=== PATIENT | female | born 1965 | race Caucasian/White ===

== ENCOUNTER 2018-08-06 04:55 | Observation (INO) ==
[2018-08-06] MEDS ORDERED: DiphenhydrAMINE HCL 50 MG/ML VIAL IV STA ×2 (05:28→07:05)
[2018-08-06] MEDS ORDERED: SODIUM CHLORIDE 0.9% 1000ML 1,000 ML IV ONE (05:28)
[2018-08-06] MEDS ORDERED: methylPREDNISolone 125 MG/2 ML VIAL IV STA (05:28)
[2018-08-06] MEDS ORDERED: RACEPINEPHRINE 2.25% NEBU SOLN 0.5 ML VIAL NEB STA (05:28)
[2018-08-06] MEDS ORDERED: FAMOTIDINE 20MG/5ML IV PUSH IV STA (05:28)
[2018-08-06] MEDS ORDERED: EPINEPHrine INJ 1 MG/ML AMP ONE (05:49)
[2018-08-06] MEDS: EPINEPHRINE ADULT AUTO-INJECT 0.3 MG SYR IM STA ×2 (06:02→06:06)
[2018-08-06 06:21] LABS: Basophils # (auto) 0.01 K/uL (0-0.2); Basophils % (auto) 0.1 %; Eosinophils # (auto) 0.11 K/uL (0-0.5); Eosinophils % (auto) 1.1 %; Hematocrit (blood only) 36.5 % (37-47); Hemoglobin 12.2 g/dL (12.0-16.0); Immature Granulocytes # (auto) 0.01 K/uL (0.00-0.02); Immature Granulocytes % (auto) 0.1 %; Lymphocytes # (auto) 1.58 K/uL (1.2-3.4); Lymphocytes % (auto) 15.6 %; Mean Corpuscular Hgb Conc 33.4 g/dL (32-36); Mean Corpuscular Volume 91.9 fL (80-100); Monocytes # (auto) 0.21 K/uL (0.11-0.59); Monocytes % (auto) 2.1 %; Neutrophils # (auto) 8.24 K/uL (1.4-6.5); Platelet Count 265 K/uL (130-400); RDW Coefficient of Variation 13.8 % (11.5-14.5); RDW Standard Deviation 46.6 fL (36.4-46.3); Red Blood Count 3.97 M/uL (4.2-5.4); White Blood Count 10.16 K/uL (4.8-10.8)
[2018-08-06 06:31] LABS: Alanine Aminotransferase 36 U/L (12-78); Albumin Globulin Ratio 0.9 (0.9-2); Albumin Level 3.5 gm/dl (3.4-5.0); Alkaline Phosphatase 49 U/L (45-117); BUN Creatinine Ratio 14.7 (10-20); Bilirubin,Total 0.8 mg/dl (0.2-1); Blood Urea Nitrogen 11 mg/dl (7-18); Calcium 8.7 mg/dl (8.5-10.1); Carbon Dioxide 25 mmol/L (21-32); Chloride 108 mmol/L (98-107); Est GFR (African American) 108.7; Est GFR (Non-African American) 93.8; Globulin 3.9 gm/dl (2.5-4.0); Glucose 113 mg/dl (70-99); Sodium 140 mmol/L (136-145); Total Protein 7.4 gm/dl (6.4-8.2)
[2018-08-06 06:36] LABS: Potassium 4.2 mmol/L (3.5-5.1)
--- NOTE | 2018-08-06 06:37 | XRay Report ---
XR chest 1V portable HISTORY: 53 years-old Female sob acute shortness of breath COMPARISON: None available TECHNIQUE: Portable AP view of the chest FINDINGS: Cardiomediastinal and hilar silhouettes are within normal limits. Nodular opacity of the right midlun g is seen measuring up to 2.3 cm. No pneumothorax, pleural effusion or overt pulmonary edema. Bones o f the chest appear grossly intact. IMPRESSION: Nodular opacity of the right midlung measuring up to 2.3 cm is suggestive of focal pneumo arslan or pulmonary nodule. Correlate clinically. The above report was generated using voice recognition software. It may contain grammatical, syntax o r spelling errors. Electronically signed by: Ollie Perez M.D. 08/06/2018 6:35 AM
[2018-08-06 06:41] LABS: Aspartate Aminotransferase 17 U/L (15-37); Magnesium 2.2 mg/dl (1.8-2.4)
[2018-08-06] MEDS ORDERED: LORazepam 0.5 MG/1 ML VIAL IV STA (07:05)
[2018-08-06] MEDS ORDERED: EPINEPHRINE ADULT AUTO-INJECT 0.3 MG SYR IM STA (07:36)
--- NOTE | 2018-08-06 07:37 | Emergency Department Note ---
Entered by Quinn Bernard acting as a scribe for History of Present Illness General Chief complaint: Allergic Reaction Stated complaint: VOMITING, SOB, PAIN IN STOMACH Time Seen by Provider: 08/06/18 05:10 Source: family History of Present Illness Onset (ago): day(s) 5 Location: chest, upper extremity, lower extremity, left and right Pain Consistency: + other (worsening) Maximum Pain Intensity: 8 Quality: + other (rash) Relieved By: + none Associated symptoms: + denies other symptoms (and changing anything in the house), + chest pain and + other (swelling of her arms and mouth, abdominal pain, burning sensation on skin, pain when swallowing, trouble hearing, fever) Treatments prior to arrival: NSAID and other (Benadryl) The patient is a 53 year old female who presents to the Emergency Room with complaints of a worsening rash to her legs, arms, and chest beginning 5 days ago. The patient's son interpreted for the patient as she only speaks Micronesian. The son states her symptoms started 5 days ago when she was in [place]. He reports she came back to [employer] [place] The son notes she has been using Benadryl every 6 hours, and it is not helping her symptoms. He states she was evaluated in the ED the other day because she was having trouble with her breathing. The son reports she was given more Benadryl and another medication. He notes since she was evaluated, she has had an increased burning sensation on her skin, abdominal pain, vomiting, chest pain, and swelling to her arms and mouth. The son states it is hard for her to swallow a pill because it is severely painful. He reports her ears are also "locked" and it is hard for her to hear. The patient notes she has never had a reaction that has lasted this l gonzalo before. He states she talked to her family doctor in [place] via [employer]. The son reports she developed a fever of 102 degrees F and has been taking ibuprofen which has helped only the fever. He notes she is not from here, and she is visiting him for three weeks while he is studying at [employer]. The patient states she has lived with him for 2 weeks already without trouble. He denies changes to anything in the house including: soap, shampoo, detergents, and chemicals. No family hx of significant allergic reactions. No use of FILIPPO inhibitors. Home Medications Home Medications Medication Instructions Recorded Confirmed Type levothyroxine 25 mcg PO QAM 08/04/18 08/06/18 History methylprednisolone [Medrol (Brandon)] See Rx Instructions .ROUTE 08/04/18 08/06/18 Rx .COMPLEX #21 ea Allergies Allergy/AdvReac Type Severity Reaction Status Date / Time No Known Allergies Allergy Unverified 08/06/18 05:13 Past Med/Surg History Medical History No significant active problems Surgical History No pertinent past surgical history Family History Other No pertinent family history Social History Communication Ability: language Beliefs That Will Affect Care: None Current Living Situation: Spouse and Family Other Information That Helps Us Care for You: No Feels Safe at Home: Yes Safety Concerns: Feels Safe At This Time Smoking Status: Never smoker Hx Alcohol Use: No Hx Substance Use: No Review of Systems See HPI for pertinent positives & negatives. and A total of 10 systems reviewed and were otherwise negative Physical Exam Vital Signs Vital Signs - 24 hr 08/06/18 21:30 08/06/18 22:20 08/06/18 23:18 Temperature 36.7 C Temperature Source Oral Pulse Rate 75 Pulse Rate [Right Finger] 70 Respiratory Rate 18 Respiratory Effort / Characteristics Non-Labored Respiratory Pattern Regular Blood Pressure [Right Arm] 104/66 Blood Pressure Mean [Right Arm] 78 Blood Pressure Position [Right Arm] Lying Pulse Oximetry 95 Oxygen Delivery Method Room Air Room Air 08/07/18 03:56 08/07/18 07:29 08/07/18 10:54 Temperature 36.9 C 36.5 C 36.9 C Temperature Source Oral Oral Oral Pulse Rate Pulse Rate [Right Finger] 82 79 80 Respiratory Rate 16 18 20 Respiratory Effort / Characteristics Respiratory Pattern Blood Pressure [Right Arm] 108/65 116/73 124/74 Blood Pressure Mean [Right Arm] 79 87 90 Blood Pressure Position [Right Arm] Lying Sitting Sitting Pulse Oximetry 94 95 96 Oxygen Delivery Method Room Air Room Air Room Air 08/07/18 15:16 08/07/18 17:10 Temperature 36.8 C 36.7 C Temperature Source Oral Oral Pulse Rate Pulse Rate [Right Finger] 64 79 Respiratory Rate 16 18 Respiratory Effort / Characteristics Respiratory Pattern Blood Pressure [Right Arm] 121/78 112/71 Blood Pressure Mean [Right Arm] 92 84 Blood Pressure Position [Right Arm] Semi-fowlers Lying Pulse Oximetry 96 96 Oxygen Delivery Method Room Air Room Air GENERAL: alert, well appearing, well nourished, no distress, non-toxic EYE EXAM: normal conjunctiva, PERRL and EOM's grossly intact OROPHARYNX: no exudate, no erythema, buccal mucosa, and tongue normal and mucous membranes are moist. Uvula midline. Lip swelling. No mucocutaneous lesions. NECK: supple, no nuchal rigidity, no adenopathy, non-tender. No stridor. LUNGS: Clear to auscultation. Normal chest wall mechanics. No wheezing. HEART: no murmurs, S1 normal and S2 normal ABDOMEN: abdomen soft, non-tender, normo-active bowel sounds, no masses, no rebound or guarding. BACK: Back is symmetrical on inspection and there is no deformity, no midline tenderness, no CVA tenderness. SKIN: no bruising. Diffuse urticaria and erythroderma. UPPER EXTREMITIES: upper extremities are grossly normal. FROM, nml pulses b/l. LOWER EXTREMITIES: No pitting edema. FROM, nml pulses b/l. NEURO EXAM: Normal sensorium, cranial nerves II-XII grossly intact, normal speech, no gross weakness of arms, no gross weakness of legs. Course 0511: The patient was evaluated in room A09B, and a complete history and physical examination were performed. 0550: I reviewed the patient's case with Dr. Nation, [facility] Hospitalist. He will evaluate the patient for further management. 0552: I reevaluated the patient and discussed the findings with the patient's son. He verbalized agreement to a hospitalist evaluation and the treatment plan. The patient will be evaluated for further management and care. 0608: Upon reevaluation, Dr. Nation is in the room. The patient received both doses of Epi and does look better. 0730: Patient now with worsening hives and arm swelling, worsening itching. No current trouble breathing or stridor. No recurrent facial swelling or lip swelling. Additional epi IM ordered. Administered Medications Diphenhydramine HCl (Benadryl) 25 mg IV Q6H PRN PRN Reason: Allergic Reaction Stop: 09/05/18 09:07 Last Admin: 08/07/18 16:37 Dose: 25 mg Documented by: [id number] Doxycycline Hyclate (Vibramycin) 100 mg PO BID [facility] Stop: 08/14/18 10:44 Last Admin: 08/07/18 12:20 Dose: 100 mg Documented by: [id number] Hydroxyzine HCl (Vistaril) 10 mg PO Q6 [facility] Stop: 09/05/18 17:59 Last Admin: 08/07/18 18:55 Dose: 10 mg Documented by: [id number] Admin: 08/07/18 12:20 Dose: 10 mg Documented by: [id number] Admin: 08/07/18 06:13 Dose: 10 mg Documented by: [id number] Admin: 08/06/18 23:32 Dose: 10 mg Documented by: [id number] Admin: 08/06/18 15:20 Dose: 10 mg Documented by: [id number] Famotidine 20 mg/ Syringe 5 mls @ 2.5 mls/min IV BID [facility] Stop: 09/05/18 20:59 Last Admin: 08/07/18 08:18 Dose: 2.5 mls/min Documented by: [id number] Admin: 08/06/18 21:34 Dose: 2.5 mls/min Documented by: [id number] Methylprednisolone 40 mg/ (Syringe) 0.64 mls @ 1.5 mls/min IV TID [facility] Stop: 09/05/18 14:44 Last Admin: 08/07/18 14:42 Dose: 1.5 mls/min Documented by: [id number] Admin: 08/07/18 08:18 Dose: 1.5 mls/min Documented by: [id number] Admin: 08/06/18 21:34 Dose: 1.5 mls/min Documented by: [id number] Admin: 08/06/18 15:13 Dose: 1.5 mls/min Documented by: [id number] Ioversol (Optiray 320 125ml) 120 ml IV ONCE PRN PRN Reason: Interaction Checking Stop: 08/11/18 11:26 Last Admin: 08/07/18 11:28 Dose: 120 ml Documented by: [id number] Levothyroxine Sodium (Synthroid) 25 mcg PO DAILYBB [facility] Stop: 09/05/18 09:59 Last Admin: 08/07/18 07:04 Dose: Not Given Documented by: [id number] Admin: 08/06/18 10:41 Dose: 25 mcg Documented by: [id number] Discontinued Medications Diphenhydramine HCl (Benadryl) 25 mg IV NOW STA Stop: 08/06/18 05:29 Last Admin: 08/06/18 06:01 Dose: 25 mg Documented by: [id number] Diphenhydramine HCl (Benadryl) 25 mg IV NOW STA Stop: 08/06/18 07:06 Last Admin: 08/06/18 07:14 Dose: 25 mg Documented by: [id number] Diphenhydramine HCl (Benadryl Capsule) 25 mg PO Q6H [facility] Stop: 09/05/18 11:59 Last Admin: 08/06/18 12:36 Dose: 25 mg Documented by: [id number] Epinephrine (Raccemic Epinephrine 2.25% 0.5ml) 0.5 ml NEB NOW STA Stop: 08/06/18 05:29 Last Admin: 08/06/18 05:54 Dose: 0.5 ml Documented by: [id number] Epinephrine HCl (Epipen) 0.3 mg IM NOW STA Stop: 08/06/18 05:29 Last Admin: 08/06/18 06:06 Dose: Not Given Documented by: [id number] Epinephrine HCl (Epinephrine) Confirm Administered Dose 1 mg .ROUTE .STK-MED ONE Stop: 08/06/18 05:50 Last Admin: 08/06/18 06:06 Dose: 0.3 mg Documented by: [id number] Epinephrine HCl (Epipen) 0.3 mg IM NOW STA Stop: 08/06/18 07:37 Last Admin: 08/06/18 07:46 Dose: 0.3 mg Documented by: [id number] Famotidine (Pepcid 20mg Iv Push) 20 mg IV ONE STA Stop: 08/06/18 05:29 Last Admin: 08/06/18 06:02 Dose: 20 mg Documented by: [id number] Sodium Chloride (Nss 1000ml) 1,000 mls @ 999 mls/hr IV .[id number] ONE Stop: 08/06/18 06:28 Last Infusion: 08/06/18 07:07 Dose: 0 mls/hr Documented by: [id number] Admin: 08/06/18 06:02 Dose: 999 mls/hr Documented by: [id number] Lorazepam (Ativan) 0.5 mg in 1 mls @ 1 mls/min IV NOW STA Stop: 08/06/18 07:06 Last Admin: 08/06/18 07:14 Dose: 1 mls/min Documented by: [id number] Sodium Chloride (Nss 1000ml) 1,000 mls @ 80 mls/hr IV .[id number] [facility] Stop: 09/05/18 09:34 Last Infusion: 08/07/18 17:10 Dose: 0 mls/hr Documented by: [id number] Admin: 08/07/18 12:21 Dose: Not Given Documented by: [id number] Infusion: 08/07/18 10:33 Dose: 0 mls/hr Documented by: [id number] Admin: 08/06/18 23:31 Dose: 80 mls/hr Documented by: [id number] Infusion: 08/06/18 23:12 Dose: 80 mls/hr Documented by: [id number] Admin: 08/06/18 10:42 Dose: 80 mls/hr Documented by: [id number] Methylprednisolone (Solumedrol) 60 mg IV NOW STA Stop: 08/06/18 05:29 Last Admin: 08/06/18 06:01 Dose: 60 mg Documented by: [id number] Medical Decision Making Differential Diagnosis Differential diagnosis: Etiologies such as allergic reaction, anaphylaxis, urticaria, angioedema, Lee-Haroon syndrome, toxic epidermal necrolysis, erythema multiforme, cellulitis, as well as others were entertained. Medical Records Attestation: I reviewed the patient's medical records. Home Medications Current Medication List: was personally reviewed by me Laboratory Data Attestation: I reviewed the patient's lab results. Result diagrams: 08/07/18 05:37 08/07/18 05:37 Lab Results 08/06/18 08/06/18 08/06/18 Range/Units 05:37 05:37 05:37 WBC Cancelled RBC Cancelled Hgb Cancelled Hct Cancelled MCV Cancelled MCH Cancelled MCHC Cancelled RDW Std Deviation Cancelled RDW Coeff of Kamryn Cancelled Plt Count Cancelled MPV Cancelled Immature Gran % (Auto) Cancelled Neut % (Auto) Cancelled Lymph % (Auto) Cancelled Emery % (Auto) Cancelled Eos % (Auto) Cancelled Baso % (Auto) Cancelled Immature Gran # (Auto) Cancelled Neut # (Auto) Cancelled Lymph # (Auto) Cancelled Emery # (Auto) Cancelled Eos # (Auto) Cancelled Baso # (Auto) Cancelled Absolute Nucleated RBC Cancelled Nucleated RBC % (auto) Cancelled Neutrophils % (Manual) Cancelled Band Neutrophils % Cancelled Lymphocytes % (Manual) Cancelled Prolymphocyte % Cancelled Reactive Lymphs % (Man) Cancelled Monocytes % (Manual) Cancelled Eosinophils % (Manual) Cancelled Basophils % (Manual) Cancelled Metamyelocytes % (Man) Cancelled Myelocytes % (Man) Cancelled Promyelocytes % (Man) Cancelled Blast Cells % (Manual) Cancelled Plasma Cell % (Manual) Cancelled Other Cells % Cancelled Nucleated RBC % Cancelled Neutrophils # (Manual) Cancelled Band Neutrophils # Cancelled Total Absolute Neuts Cancelled Lymphocytes # (Manual) Cancelled Prolymphocyte # Cancelled Reactive Lymphs # Cancelled Total Abs Lymphocytes Cancelled Monocytes # (Manual) Cancelled Eosinophils # (Manual) Cancelled Basophils # (Manual) Cancelled Metamyelocytes # (Man) Cancelled Myelocytes # (Manual) Cancelled Promyelocytes # (Man) Cancelled Blast Cells # (Man) Cancelled Plasma Cell # (Manual) Cancelled Other Cells # Cancelled Nucleated RBCs # (Man) Cancelled Hypersegmented Neuts Cancelled Hyposegmented Neuts Cancelled Hypogranular Neuts Cancelled Large Granular Lymphs Cancelled # Lrg Granular Lymphs Cancelled Hairy Cells Cancelled Smudge Cells Cancelled Toxic Granulation Cancelled Toxic Vacuolation Cancelled Dohle Bodies Cancelled Robert Rods Cancelled Platelet Estimate Cancelled Hypogranular Platelets Cancelled Clumped Platelets Cancelled Giant Platelets Cancelled Platelet Satelliting Cancelled RBC Morphology Cancelled Polychromasia Cancelled Hypochromasia Cancelled Poikilocytosis Cancelled Basophilic Stippling Cancelled Anisocytosis Cancelled Microcytosis Cancelled Macrocytosis Cancelled Spherocytes Cancelled Pappenheimer Bodies Cancelled Sickle Cells Cancelled Target Cells Cancelled Tear Drop Cells Cancelled Ovalocytes Cancelled Stomatocytes Cancelled Hitchcock-Rougemont Bodies Cancelled Echinocytes Cancelled Acanthocytes (Spur) Cancelled Rouleaux Cancelled RBC Agglutinates Cancelled Schistocytes Cancelled RBC Morph Comment Cancelled Sezary Cell Cancelled Sodium 140 (136-145) mmol/L Potassium 4.2 (3.5-5.1) mmol/L Chloride 108 H (98-107) mmol/L Carbon Dioxide 25 (21-32) mmol/L Anion Gap 7.0 (3-11) BUN 11 (7-18) mg/dl Creatinine 0.74 (0.6-1.2) mg/dl Est Cr Clr Drug Dosing Not Reportable Est GFR ( Amer) 108.7 Est GFR (Non-Af Amer) 93.8 BUN/Creatinine Ratio 14.7 (10-20) Glucose 113 H (70-99) mg/dl Calcium 8.7 (8.5-10.1) mg/dl Magnesium 2.2 (1.8-2.4) mg/dl Total Bilirubin 0.8 (0.2-1) mg/dl AST 17 (15-37) U/L ALT 36 (12-78) U/L Alkaline Phosphatase 49 (45-117) U/L Total Protein 7.4 (6.4-8.2) gm/dl Albumin 3.5 (3.4-5.0) gm/dl Globulin 3.9 (2.5-4.0) gm/dl Albumin/Globulin Ratio 0.9 (0.9-2) Histamine Cancelled Procalcitonin (0-0.5) ng/ml TSH (0.300-4.500) uIu/ml Free T4 (0.8-1.6) ng/dl Blood Type Antibody Screen 08/06/18 08/06/18 08/07/18 Range/Units 05:58 05:59 05:37 WBC 10.16 RBC 3.97 L Hgb 12.2 Hct 36.5 L MCV 91.9 MCH 30.7 MCHC 33.4 RDW Std Deviation 46.6 H RDW Coeff of Kamryn 13.8 Plt Count 265 MPV 10.0 Immature Gran % (Auto) 0.1 Neut % (Auto) 81.0 Lymph % (Auto) 15.6 Emery % (Auto) 2.1 Eos % (Auto) 1.1 Baso % (Auto) 0.1 Immature Gran # (Auto) 0.01 Neut # (Auto) 8.24 H Lymph # (Auto) 1.58 Emery # (Auto) 0.21 Eos # (Auto) 0.11 Baso # (Auto) 0.01 Absolute Nucleated RBC Nucleated RBC % (auto) Neutrophils % (Manual) Band Neutrophils % Lymphocytes % (Manual) Prolymphocyte % Reactive Lymphs % (Man) Monocytes % (Manual) Eosinophils % (Manual) Basophils % (Manual) Metamyelocytes % (Man) Myelocytes % (Man) Promyelocytes % (Man) Blast Cells % (Manual) Plasma Cell % (Manual) Other Cells % Nucleated RBC % Neutrophils # (Manual) Band Neutrophils # Total Absolute Neuts Lymphocytes # (Manual) Prolymphocyte # Reactive Lymphs # Total Abs Lymphocytes Monocytes # (Manual) Eosinophils # (Manual) Basophils # (Manual) Metamyelocytes # (Man) Myelocytes # (Manual) Promyelocytes # (Man) Blast Cells # (Man) Plasma Cell # (Manual) Other Cells # Nucleated RBCs # (Man) Hypersegmented Neuts Hyposegmented Neuts Hypogranular Neuts Large Granular Lymphs # Lrg Granular Lymphs Hairy Cells Smudge Cells Toxic Granulation Toxic Vacuolation Dohle Bodies Robert Rods Platelet Estimate Hypogranular Platelets Clumped Platelets Giant Platelets Platelet Satelliting RBC Morphology Polychromasia Hypochromasia Poikilocytosis Basophilic Stippling Anisocytosis Microcytosis Macrocytosis Spherocytes Pappenheimer Bodies Sickle Cells Target Cells Tear Drop Cells Ovalocytes Stomatocytes Hitchcock-Rougemont Bodies Echinocytes Acanthocytes (Spur) Rouleaux RBC Agglutinates Schistocytes RBC Morph Comment Sezary Cell Sodium (136-145) mmol/L Potassium (3.5-5.1) mmol/L Chloride (98-107) mmol/L Carbon Dioxide (21-32) mmol/L Anion Gap (3-11) BUN (7-18) mg/dl Creatinine (0.6-1.2) mg/dl Est Cr Clr Drug Dosing Est GFR ( Amer) Est GFR (Non-Af Amer) BUN/Creatinine Ratio (10-20) Glucose (70-99) mg/dl Calcium (8.5-10.1) mg/dl Magnesium (1.8-2.4) mg/dl Total Bilirubin (0.2-1) mg/dl AST (15-37) U/L ALT (12-78) U/L Alkaline Phosphatase (45-117) U/L Total Protein (6.4-8.2) gm/dl Albumin (3.4-5.0) gm/dl Globulin (2.5-4.0) gm/dl Albumin/Globulin Ratio (0.9-2) Histamine Procalcitonin < 0.05 (0-0.5) ng/ml TSH (0.300-4.500) uIu/ml Free T4 (0.8-1.6) ng/dl Blood Type A Negative Antibody Screen NEGATIVE 08/07/18 08/07/18 Range/Units 05:37 05:37 WBC 8.29 RBC 3.24 L Hgb 9.5 L Hct 29.8 L MCV 92.0 MCH 29.3 MCHC 31.9 L RDW Std Deviation 45.9 RDW Coeff of Kamryn 13.7 Plt Count 240 MPV 9.8 Immature Gran % (Auto) 0.2 Neut % (Auto) 80.0 Lymph % (Auto) 15.8 Emery % (Auto) 3.9 Eos % (Auto) 0.1 Baso % (Auto) 0.0 Immature Gran # (Auto) 0.02 Neut # (Auto) 6.63 H Lymph # (Auto) 1.31 Emery # (Auto) 0.32 Eos # (Auto) 0.01 Baso # (Auto) 0.00 Absolute Nucleated RBC Nucleated RBC % (auto) Neutrophils % (Manual) Band Neutrophils % Lymphocytes % (Manual) Prolymphocyte % Reactive Lymphs % (Man) Monocytes % (Manual) Eosinophils % (Manual) Basophils % (Manual) Metamyelocytes % (Man) Myelocytes % (Man) Promyelocytes % (Man) Blast Cells % (Manual) Plasma Cell % (Manual) Other Cells % Nucleated RBC % Neutrophils # (Manual) Band Neutrophils # Total Absolute Neuts Lymphocytes # (Manual) Prolymphocyte # Reactive Lymphs # Total Abs Lymphocytes Monocytes # (Manual) Eosinophils # (Manual) Basophils # (Manual) Metamyelocytes # (Man) Myelocytes # (Manual) Promyelocytes # (Man) Blast Cells # (Man) Plasma Cell # (Manual) Other Cells # Nucleated RBCs # (Man) Hypersegmented Neuts Hyposegmented Neuts Hypogranular Neuts Large Granular Lymphs # Lrg Granular Lymphs Hairy Cells Smudge Cells Toxic Granulation Toxic Vacuolation Dohle Bodies Robert Rods Platelet Estimate Hypogranular Platelets Clumped Platelets Giant Platelets Platelet Satelliting RBC Morphology Polychromasia Hypochromasia Poikilocytosis Basophilic Stippling Anisocytosis Microcytosis Macrocytosis Spherocytes Pappenheimer Bodies Sickle Cells Target Cells Tear Drop Cells Ovalocytes Stomatocytes Hitchcock-Rougemont Bodies Echinocytes Acanthocytes (Spur) Rouleaux RBC Agglutinates Schistocytes RBC Morph Comment Sezary Cell Sodium 140 (136-145) mmol/L Potassium 4.3 (3.5-5.1) mmol/L Chloride 110 H (98-107) mmol/L Carbon Dioxide 26 (21-32) mmol/L Anion Gap 4.0 (3-11) BUN 11 (7-18) mg/dl Creatinine 0.49 L (0.6-1.2) mg/dl Est Cr Clr Drug Dosing Not Reportable Est GFR ( Amer) 130.7 Est GFR (Non-Af Amer) 112.8 BUN/Creatinine Ratio 23.3 H (10-20) Glucose 110 H (70-99) mg/dl Calcium 8.2 L (8.5-10.1) mg/dl Magnesium 2.1 (1.8-2.4) mg/dl Total Bilirubin (0.2-1) mg/dl AST (15-37) U/L ALT (12-78) U/L Alkaline Phosphatase (45-117) U/L Total Protein (6.4-8.2) gm/dl Albumin (3.4-5.0) gm/dl Globulin (2.5-4.0) gm/dl Albumin/Globulin Ratio (0.9-2) Histamine Procalcitonin (0-0.5) ng/ml TSH 0.167 L (0.300-4.500) uIu/ml Free T4 0.89 (0.8-1.6) ng/dl Blood Type Antibody Screen Imaging Data Attestation: I personally reviewed and interpreted this imaging study as follow s: My Impression: XR chest 1V portable stat: No effusion. No pneumothorax. No consolidation. No pulmonary edema. No infiltrate. No wide mediastinum. Blood Pressure Blood Pressure Findings: Normal blood pressure Blood Pressure Disposition: did not require urgent referral MDM Narrative Pt presents here with anaphylaxis and angioedema of unclear etiology. Pt has been taking benadryl/steroids/pepcid as an outpatient with persistent recurrence of symptoms. Pt here also given IM epi and racemic epi which did help with airway symptoms. No hypotension, no hypoxia. Pt improved with meds, but given persistence despite appropriate outpt tx, case discussed with hospitalist for additional evaluation and mgmt. Labs reassuring. No evidence of SJS/TEN. Impression & Plan Anaphylaxis, Angioedema Critical Care Time I have personally spent greater than 35 minutes of critical care time in the direct management of this patient. This includes bedside care, interpretation of diagnostic studies, and testing, discussion with consultants, patient, and family members, and other required patient management activities. This 35 minutes is in excess of all separately billable procedures. Critical Care Time: Yes Total Critical Care Time: 35 Discharge Plan Visit Data *Final* Discharge Date/Time: 08/06/18 08:37 Chief Complaint: Allergic Reaction Stated Complaint: VOMITING, SOB, PAIN IN STOMACH ED Provider: Violeta De La Torre Discharge Problem: Anaphylaxis, Angioedema Patient Disposition: Admitted As Inpatient Condition: Fair Discharge Instructions Interventions: ED Discharge Assessment Last Done: 08/06/18 08:37 The scribe's documentation has been prepared under my direction and personally reviewed by me in its entirety. I confirm that the note above accurately reflects all work, treatment, procedures, and medical decision making performed by me.
--- NOTE | 2018-08-06 08:07 | History and Physical Report ---
DATE OF ADMISSION: 08/06/2018 CHIEF COMPLAINT: Allergic reaction. HISTORY OF PRESENT ILLNESS: This 53-year-old female with past medical history significant for hypothyroidism. She is Indonesian. She is visiting [place] over the last couple of weeks. Her son is in [facility]. Apparently, she was doing okay until 5 days ago when she went to [facility]. She walked in the park, then after that she felt itchy all over and also got some short of breath.She was fully covered and there was no bug bites. She took [id number] Benadryl and she was taking it regularly and it seems to help a little bit, but again she began spreading itchy rash all over the body and she felt that the throat is tight and difficult to swallow and she came to the ER on August 04. She was given Decadron, IV Benadryl, IV Zantac and her symptoms improved. She was discharged on Medrol Dosepak and Benadryl. The patient was taking those medications regularly, but again on August 05 afternoon she again came to the ER with the diffuse joint pain and itching. The labs showed the white count 15,000, thought this is from the right steroids and rest of labs ok she was feeling better after the Toradol and Benadryl, and she was discharged to follow with rheumatology.And again tonight, she again felt swollen all over, lips were swollen, her face was swollen, hands and legs were swollen and she felt that she was a getting short of breath and she has nausea and vomited and was having belly discomfort and burning sensation in the abdomen up to the throat. She felt like she was going to pass out and was brought her to the ER. In the ER, she received IV Benadryl, IM epinephrine, IV famotidine, IV steroid, IV Solu-Medrol 60 mg, IV fluids and racemic epinephrine. By the time I am seeing the patient, her vitals are stable. The patient's swelling was almost gone except in the hands, pain all over the body improved and she is talking fine. Currently, she is much better. As per son, there is no bug bite, and no recent change of her medications, no change in food or any perfumes or any soaps or detergents. This kind of episode never happened in the [place] before. She has some temp spike today also in the house. The patient currently denies any chest pain or shortness of breath. Currently, no nausea. Normal bowel and bladder movements. No hematuria or blood in the stools. Currently, resting comfortable and hemodynamically stable. Because of this ongoing allergic reaction, we were called for admission.Patient does not speak Wolof,Son was helping with translation. ALLERGIES: No known drug allergies. PAST MEDICAL HISTORY: As mentioned above. PAST SURGICAL HISTORY: and appendectomy. MEDICATIONS: She is on levothyroxine 25 mcg daily and hormone replacement therapy for menopause. FAMILY HISTORY: No significant family history. SOCIAL HISTORY: No smoking history. No alcohol. She is from [place]. She is visiting [place] as her son is in [facility]. REVIEW OF SYMPTOMS: As per HPI. Rest of review of systems is negative. PHYSICAL EXAMINATION: GENERAL: The patient is of moderate build, not in acute distress. VITAL SIGNS: Temperature 36.8, pulse 86, respiratory rate 18, blood pressure 114/65, oxygen 98% room air. HEENT: No pallor, no icterus. Pupils equal, round, react to light. NECK: No JVD, no neck masses, no carotid bruit. Oral mucosa moist. CARDIOVASCULAR: S1, S2 heard, regular rate and rhythm, no murmur, no gallop. RESPIRATORY SYSTEM: Normal AP diameter. No accessory muscle use. No wheezing, no crackles. ABDOMEN: Soft, bowel sounds present. Nontender. No distention. CENTRAL NERVOUS SYSTEM: Cranial nerves II-XII grossly intact. Nonfocal. EXTREMITIES: Trace pedal edema present, no erythema seen. LABORATORIES: WBC 10, hemoglobin 12.2, hematocrit 36.5, platelets 265. Sodium 140, potassium 4.2, chloride 108, bicarbonate 25, BUN 11, creatinine 0.7, serum glucose 113, calcium 8.7, magnesium 2.2, total bilirubin 0.8, AST 17, ALT 36, alkaline phosphatase 49, total protein 7.4. Chest x-ray: Nodular opacity in the right mid lung, measuring 2.3cm suggestive of focal pneumonia or pulmonary nodule, correlate clinically. ASSESSMENT AND PLAN: 1. This is a 53-year-old female who presents with allergic reaction, anaphylaxis, angioedema, no source of reaction identifiable. The patient was in [facility] 5 days ago, she was walking in a park, she was covered with clothes. No signs of any bug bites. First, she noticed itchiness and some shortness of breath that relieved with Benadryl. This is third ER visit. She visited on and and treated with steroids, Benadryl and histamine blockers and she felt better and was discharged on methylprednisone pack and Benadryl. Though she was taking them regularly, she again had significant reaction tonight with facial swelling, lip swelling, shortness of breath, nausea, belly pain and fever spikes at home and joint swellings. After treatment in the ER with epinephrine, IV Solu-Medrol, IV Benadryl, IV Pepcid, she is feeling much better. We will continue IV Solu-Medrol 40 b.i.d., IV Pepcid 20 b.i.d., p.o. Benadryl 25 mg p.o. q. 6 hours and IV Benadryl p.r.n. ER ordered to place angiotensin cardiac enzymes , tryptase and histamines. Those are reference labs, we will follow on that. Closely monitor in the tele floor. If any reaction happens again, may consider transferring to the ICU and get the critical care help. 2. History of hypothyroidism. Continue Synthroid. 3. Possible pneumonia vs nodule on the chest x-ray. The patient does not have cough or fever at this time and no white count, could be aspiration when she vomited today. We will follow with repeat 2-view chest x-ray later. 4. Menopause. The patient is on hormone replacement therapy, taking Indonesian medication .we will hold for now. 5. Deep vein thrombosis prophylaxis, SCDs. 6. Disposition: Closely monitor in the tele floor. Level 1 full code. MTDD
[2018-08-06] MEDS ORDERED: DiphenhydrAMINE HCL 50 MG/ML VIAL IV PRN (09:08)
[2018-08-06] MEDS ORDERED: ONDANSETRON INJ 2 MG/ML 2 ML VIAL IV PRN (09:08)
[2018-08-06] MEDS ORDERED: ACETAMINOPHEN 325 MG TAB PO PRN (09:08)
[2018-08-06] MEDS ORDERED: NITROGLYCERIN SL 0.4 MG/TAB TAB SL PRN (09:08)
[2018-08-06] MEDS: LEVOTHYROXINE SODIUM 25 MCG TABLET PO SCH (10:41)
[2018-08-06] MEDS: SODIUM CHLORIDE 0.9% 1000ML 1,000 ML IV SCH ×2 (10:42→23:31)
[2018-08-06] MEDS: methylPREDNISolone 40 MG in SYRINGE 0 ML IV SCH ×2 (15:13→21:34)
[2018-08-06] MEDS: hydrOXYzine HCl 10 MG TAB PO SCH ×2 (15:20→23:32)
--- NOTE | 2018-08-06 19:55 | Hospitalist Progress Note ---
Date of Service August 06, 2018 Assessment & Plan (1) Allergic reaction: Patient is 53 yr female who presents with allergic reaction, anaphylaxis, angioedema Anaphylaxis Angioedema No identifiable source No signs of insect bites Continue IV steroids, Pepcid, Vistaril Benadryl discontinued as could have dye allergy Need outpatient work up with wash oil pump operator helper May also need to FU with Rheumatology as outpatient Plan to Discharge on Epi pen once stable Angiotensin converting enzyme, tryptase, histamine pending Hypothyroidism Continue Synthroid Check Thyroid function tests Possible pneumonia vs nodule on the chest x-ray Denies cough ? Aspiration Check Procalcitonin May need CT chest Vs Repeat X ray as outpatient Menopause Patient is on hormone replacement therapy, taking Cymro medication Will hold for now. DVT Px: SCDs Code Status Full Code Disposition: Expect to discharge home when stable Subjective Patient is seen and examined at bedside Generalized itching, swelling improving Denies any joint tenderness today Also denies any chest pain, SOB, dizziness, abd pain Physical Exam Vital Signs (Past 24 Hours): Last Vital Signs Temp 37.4 C 08/06/18 19:19 Pulse 82 08/06/18 19:19 Resp 16 08/06/18 19:19 BP 112/70 08/06/18 19:19 Pulse Ox 95 08/06/18 19:19 Physical Exam: Physical Exam: Vitals signs as noted above General Appearance:Moderately built and nourished, no apparent distress Head: normocephalic, Atraumatic Eyes: normal inspection, EOMI, PERRL Neck: supple, Trachea midline Respiratory/Chest: Normal breath sounds, CTA Cardiovascular: S1, S2, No murmur Abdomen/GI:Soft, Non tender, Bowel sounds present Extremities/Musculoskelatal:normal inspection, Trace pedal, hand edema Neurologic/Psych:AAOX3, grossly no focal neurological deficits Skin: normal color, warm Results & Data Laboratory Results Short CBC 08/06/18 08/06/18 Range/Units 05:37 05:59 WBC Cancelled 10.16 Hgb Cancelled 12.2 Hct Cancelled 36.5 L Plt Count Cancelled 265 BMP 08/06/18 05:37 Sodium 140 Potassium 4.2 Chloride 108 H Carbon Dioxide 25 BUN 11 Creatinine 0.74 Glucose 113 H Calcium 8.7 Liver Function 08/06/18 Range/Units 05:37 Total Bilirubin 0.8 (0.2-1) mg/dl AST 17 (15-37) U/L ALT 36 (12-78) U/L Alkaline Phosphatase 49 (45-117) U/L Albumin 3.5 (3.4-5.0) gm/dl
[2018-08-06] MEDS ORDERED: methylPREDNISolone 40 MG in SYRINGE 0 ML IV SCH (21:00)
[2018-08-06] MEDS ORDERED: FAMOTIDINE 20MG/5ML IV PUSH IV SCH (21:00)
[2018-08-06] MEDS: FAMOTIDINE 20 MG in SYRINGE 3 ML IV SCH (21:34)
[2018-08-07 06:00] LABS: Eosinophils # (auto) 0.01 K/uL (0-0.5); Eosinophils % (auto) 0.1 %; Hematocrit (blood only) 29.8 % (37-47); Hemoglobin 9.5 g/dL (12.0-16.0); Immature Granulocytes # (auto) 0.02 K/uL (0.00-0.02); Immature Granulocytes % (auto) 0.2 %; Lymphocytes # (auto) 1.31 K/uL (1.2-3.4); Lymphocytes % (auto) 15.8 %; Mean Corpuscular Hgb Conc 31.9 g/dL (32-36); Mean Platelet Volume 9.8 fL (7.4-10.4); Monocytes # (auto) 0.32 K/uL (0.11-0.59); Monocytes % (auto) 3.9 %; Neutrophils # (auto) 6.63 K/uL (1.4-6.5); Platelet Count 240 K/uL (130-400); RDW Coefficient of Variation 13.7 % (11.5-14.5); RDW Standard Deviation 45.9 fL (36.4-46.3); Red Blood Count 3.24 M/uL (4.2-5.4); White Blood Count 8.29 K/uL (4.8-10.8)
[2018-08-07] MEDS: hydrOXYzine HCl 10 MG TAB PO SCH ×4 (06:13→23:08)
[2018-08-07 06:36] LABS: BUN Creatinine Ratio 23.3 (10-20); Blood Urea Nitrogen 11 mg/dl (7-18); Calcium 8.2 mg/dl (8.5-10.1); Carbon Dioxide 26 mmol/L (21-32); Chloride 110 mmol/L (98-107); Est GFR (African American) 130.7; Est GFR (Non-African American) 112.8; Glucose 110 mg/dl (70-99); Magnesium 2.1 mg/dl (1.8-2.4); Potassium 4.3 mmol/L (3.5-5.1); Sodium 140 mmol/L (136-145)
[2018-08-07 06:47] LABS: T4 Free Thyroxine 0.89 ng/dl (0.8-1.6)
[2018-08-07] MEDS: LEVOTHYROXINE SODIUM 25 MCG TABLET PO SCH (07:04)
[2018-08-07] MEDS: FAMOTIDINE 20 MG in SYRINGE 3 ML IV SCH ×3 (08:18→22:16)
[2018-08-07] MEDS: methylPREDNISolone 40 MG in SYRINGE 0 ML IV SCH ×3 (08:18→21:15)
[2018-08-07] MEDS ORDERED: DOXYCYCLINE HYCLATE 100 MG CAP PO SCH (10:45)
[2018-08-07] MEDS ORDERED: OPTIRAY 320 125ml IV PRN (11:27)
--- NOTE | 2018-08-07 11:43 | CT Scan Report ---
CT angio chest PE protocol CT DOSE: 196.34 mGy.cm HISTORY: Chest pain PE TECHNIQUE: Multiaxial CT images of the chest were performed following the intravenous administration of contrast to evaluate the pulmonary arteries. Maximal intensity projection images were also obtaine d. A dose lowering technique was utilized adhering to the principles of ALARA. COMPARISON STUDY: None. FINDINGS: There is a normal caliber thoracic aorta with no evidence for dissection. There is no evide nce for pulmonary embolus. No pleural effusions. No pneumothorax. The liver and spleen are unremarkab le. No mediastinal or hilar lymphadenopathy. The central airways are patent. The lungs are clear. Pre vious described density right midlung is not seen IMPRESSION: No evidence for pulmonary embolus. Lungs are clear. The above report was generated using voice recognition software. It may contain grammatical, syntax or spelling errors. Electronically signed by: Aquiles Bonilla M.D. 08/07/2018 11:42 AM
[2018-08-07] MEDS: SODIUM CHLORIDE 0.9% 1000ML 1,000 ML IV SCH (12:21)
[2018-08-07] MEDS ORDERED: guaiFENesin SUGAR FREE 200 MG/10 ML UDC PO PRN (19:26)
[2018-08-07] MEDS ORDERED: LORazepam 0.5 MG TAB PO PRN (19:26)
--- NOTE | 2018-08-07 20:37 | Hospitalist Progress Note ---
Date of Service August 07, 2018 Assessment & Plan (1) Allergic reaction: Patient is 53 yr female who presents with allergic reaction, anaphylaxis, angioedema Anaphylaxis Angioedema No identifiable source No signs of insect bites Continue IV steroids, Pepcid, Vistaril, Benadryl Need outpatient work up with confidential secretary May also need to FU with Rheumatology as outpatient Plan to Discharge on Epi pen once stable Angiotensin converting enzyme, tryptase, histamine pending Continue current meds Cough/Pleuritic Chest Pain: CTA:No evidence for pulmonary embolus. Lungs are clear. Started on Doxycycline empirically Normal Procalcitonin Hypothyroidism Continue Synthroid TSH low, free T 4 normal Menopause Patient is on hormone replacement therapy, taking Omani medication Will hold for now. DVT Px: SCDs Code Status Full Code Disposition: Expect to discharge home when stable Subjective Patient is seen and examined at bedside States having cough with some pleuritic chest pain Generalized itching, swelling improved No other complaints Denies any SOB, dizziness, abd pain Physical Exam Vital Signs (Past 24 Hours): Last Vital Signs Temp 36.7 C 08/07/18 17:10 Pulse 79 08/07/18 17:10 Resp 18 08/07/18 17:10 BP 112/71 08/07/18 17:10 Pulse Ox 96 08/07/18 17:10 Physical Exam: Physical Exam: Vitals signs as noted above General Appearance:Moderately built and nourished, no apparent distress Head: normocephalic, Atraumatic Eyes: normal inspection, EOMI, PERRL Neck: supple, Trachea midline Respiratory/Chest: Normal breath sounds, CTA Cardiovascular: S1, S2, No murmur Abdomen/GI:Soft, Non tender, Bowel sounds present Extremities/Musculoskelatal:normal inspection, Trace pedal, hand edema Neurologic/Psych:AAOX3, grossly no focal neurological deficits Skin: normal color, warm, +hives on chest improving Results & Data Laboratory Results Short CBC 08/07/18 Range/Units 05:37 WBC 8.29 (4.8-10.8) K/uL Hgb 9.5 L (12.0-16.0) g/dL Hct 29.8 L (37-47) % Plt Count 240 (130-400) K/uL BMP 08/07/18 05:37 Sodium 140 Potassium 4.3 Chloride 110 H Carbon Dioxide 26 BUN 11 Creatinine 0.49 L Glucose 110 H Calcium 8.2 L
[2018-08-08] MEDS: hydrOXYzine HCl 10 MG TAB PO SCH ×2 (05:23→12:13)
[2018-08-08] MEDS: LEVOTHYROXINE SODIUM 25 MCG TABLET PO SCH (05:23)
[2018-08-08 06:52] LABS: Eosinophils # (auto) 0.01 K/uL (0-0.5); Eosinophils % (auto) 0.1 %; Hematocrit (blood only) 31.1 % (37-47); Hemoglobin 10.4 g/dL (12.0-16.0); Immature Granulocytes # (auto) 0.02 K/uL (0.00-0.02); Immature Granulocytes % (auto) 0.2 %; Lymphocytes # (auto) 1.58 K/uL (1.2-3.4); Lymphocytes % (auto) 15.8 %; Mean Corpuscular Hgb Conc 33.4 g/dL (32-36); Mean Corpuscular Volume 91.5 fL (80-100); Mean Platelet Volume 9.7 fL (7.4-10.4); Neutrophils # (auto) 7.57 K/uL (1.4-6.5); Neutrophils % (auto) 75.9 %; Platelet Count 276 K/uL (130-400); RDW Coefficient of Variation 13.6 % (11.5-14.5); RDW Standard Deviation 45.2 fL (36.4-46.3); White Blood Count 9.98 K/uL (4.8-10.8)
[2018-08-08 07:20] LABS: BUN Creatinine Ratio 17.5 (10-20); Blood Urea Nitrogen 11 mg/dl (7-18); Calcium 8.5 mg/dl (8.5-10.1); Carbon Dioxide 30 mmol/L (21-32); Chloride 106 mmol/L (98-107); Est GFR (Non-African American) 104.4; Glucose 114 mg/dl (70-99); Magnesium 2.2 mg/dl (1.8-2.4); Potassium 3.9 mmol/L (3.5-5.1); Sodium 139 mmol/L (136-145)
[2018-08-08] MEDS: methylPREDNISolone 40 MG in SYRINGE 0 ML IV SCH ×2 (08:42→14:00)
[2018-08-08] MEDS ORDERED: FAMOTIDINE 20 MG TAB PO SCH (09:00)
[2018-08-08] MEDS ORDERED: EPINEPHRINE ADULT AUTO-INJECT 0.3 MG SYR IM PRN (12:44)
--- NOTE | 2018-08-08 12:50 | Hospitalist Progress Note ---
Date of Service August 08, 2018 Assessment & Plan (1) Allergic reaction: Patient is 53 yr female who presents with allergic reaction, anaphylaxis, angioedema Anaphylaxis Angioedema No identifiable source No signs of insect bites Continue IV steroids, Pepcid, Vistaril, Benadryl>>Transition to Prednisone Need outpatient work up with medical chief technician May also need to FU with Rheumatology as outpatient Plan to Discharge on Epi pen for emergency Angiotensin converting enzyme, tryptase, histamine pending Continue current meds Cough/Pleuritic Chest Pain: CTA:No evidence for pulmonary embolus. Lungs are clear. Normal Procalcitonin No Abx for now Chest pain resolved Hypothyroidism Continue Synthroid TSH low, free T 4 normal Menopause Patient is on hormone replacement therapy, taking Macanese medication Continue home meds DVT Px: SCDs Code Status Full Code Disposition: Plan to discharge home today Subjective Patient is seen and examined at bedside Doing much better today Offers no complaints Chest pain resolved Denies itching, swelling Also denies any SOB, dizziness, abd pain Discussed with family in detail Physical Exam Vital Signs (Past 24 Hours): Last Vital Signs Temp 36.8 C 08/08/18 07:39 Pulse 63 08/08/18 07:39 Resp 20 08/08/18 07:39 BP 108/61 08/08/18 07:39 Pulse Ox 97 08/08/18 07:39 Physical Exam: Physical Exam: Vitals signs as noted above General Appearance:Moderately built and nourished, no apparent distress Head: normocephalic, Atraumatic Eyes: normal inspection, EOMI, PERRL Neck: supple, Trachea midline Respiratory/Chest: Normal breath sounds, CTA Cardiovascular: S1, S2, No murmur Abdomen/GI:Soft, Non tender, Bowel sounds present Extremities/Musculoskelatal:normal inspection, Trace pedal, hand edema Neurologic/Psych:AAOX3, grossly no focal neurological deficits Skin: normal color, warm, +hives on chest resolved Results & Data Laboratory Results Short CBC 08/08/18 Range/Units 06:20 WBC 9.98 (4.8-10.8) K/uL Hgb 10.4 L (12.0-16.0) g/dL Hct 31.1 L (37-47) % Plt Count 276 (130-400) K/uL BMP 08/08/18 06:20 Sodium 139 Potassium 3.9 Chloride 106 Carbon Dioxide 30 BUN 11 Creatinine 0.62 Glucose 114 H Calcium 8.5
--- NOTE | 2018-08-08 13:05 | Discharge Summary ---
Date of Service August 08, 2018 Admission HPI Per Admitting Provider CHIEF COMPLAINT: Allergic reaction. HISTORY OF PRESENT ILLNESS: This 53-year-old female with past medical history significant for hypothyroidism. She is Japanese. She is visiting [employer] over the last couple of weeks. Her son is in [facility]. Apparently, she was doing okay until 5 days ago when she went to [facility]. She walked in the park, then after that she felt itchy all over and also got some short of breath.She was fully covered and there was no bug bites. She took uyxk-mju-dvfshml Benadryl and she was taking it regularly and it seems to help a little bit, but again she began spreading itchy rash all over the body and she felt that the throat is tight and difficult to swallow and she came to the ER on August 04. She was given Decadron, IV Benadryl, IV Zantac and her symptoms improved. She was discharged on Medrol Dosepak and Benadryl. The patient was taking those medications regularly, but again on August 05 afternoon she again came to the ER with the diffuse joint pain and itching. The labs showed the white count 15,000, thought this is from the right steroids and rest of labs ok she was feeling better after the Toradol and Benadryl, and she was discharged to follow with rheumatology.And again tonight, she again felt swollen all over, lips were swollen, her face was swollen, hands and legs were swollen and she felt that she was a getting short of breath and she has nausea and vomited and was having belly discomfort and burning sensation in the abdomen up to the throat. She felt like she was going to pass out and was brought her to the ER. In the ER, she received IV Benadryl, IM epinephrine, IV famotidine, IV steroid, IV Solu-Medrol 60 mg, IV fluids and racemic epinephrine. By the time I am seeing the patient, her vitals are stable. The patient's swelling was almost gone except in the hands, pain all over the body improved and she is talking fine. Currently, she is much better. As per son, there is no bug bite, and no recent change of her medications, no change in food or any perfumes or any soaps or detergents. This kind of episode never happened in the [place] before. She has some temp spike today also in the house. The patient currently denies any chest pain or shortness of breath. Currently, no nausea. Normal bowel and bladder movements. No hematuria or blood in the stools. Currently, resting comfortable and hemodynamically stable. Because of this ongoing allergic reaction, we were called for admission.Patient does not speak Polish,Son was helping with translation. Admission Exam Per Admitting Provider PHYSICAL EXAMINATION: GENERAL: The patient is of moderate build, not in acute distress. VITAL SIGNS: Temperature 36.8, pulse 86, respiratory rate 18, blood pressure 114/65, oxygen 98% room air. HEENT: No pallor, no icterus. Pupils equal, round, react to light. NECK: No JVD, no neck masses, no carotid bruit. Oral mucosa moist. CARDIOVASCULAR: S1, S2 heard, regular rate and rhythm, no murmur, no gallop. RESPIRATORY SYSTEM: Normal AP diameter. No accessory muscle use. No wheezing, no crackles. ABDOMEN: Soft, bowel sounds present. Nontender. No distention. CENTRAL NERVOUS SYSTEM: Cranial nerves II-XII grossly intact. Nonfocal. EXTREMITIES: Trace pedal edema present, no erythema seen. Principal Diagnosis Discharge Information Discharge Diagnosis Anaphylaxis Angioedema Discharge Goals Decrease discomfort,Improve disease control Discharge Activity Limitations Resume your previous activity Discharge Data Allergies Allergy/AdvReac Type Severity Reaction Status Date / Time No Known Allergies Allergy Unverified 08/06/18 05:13 Consultations 08/06/18 05:53 ED Decision to Admit Stat Procedures Performed CT Chest: FINDINGS: There is a normal caliber thoracic aorta with no evidence for dissection. There is no evidence for pulmonary embolus. No pleural effusions. No pneumothorax. The liver and spleen are unremarkable. No mediastinal or hilar lymphadenopathy. The central airways are patent. The lungs are clear. Previous described density right midlung is not seen IMPRESSION: No evidence for pulmonary embolus. Lungs are clear. Ordered Studies 08/07/18 10:32 CT angio chest PE protocol Routine Hospital Course (1) Allergic reaction: Patient is 53 yr female who presents with allergic reaction, anaphylaxis, angioedema Anaphylaxis Angioedema No identifiable source No signs of insect bites Continue IV steroids, Pepcid, Vistaril, Benadryl>>Transition to Prednisone Need outpatient work up with insole tacker May also need to FU with Rheumatology as outpatient Plan to Discharge on Epi pen for emergency Angiotensin converting enzyme, tryptase, histamine pending Continue current meds Cough/Pleuritic Chest Pain: CTA:No evidence for pulmonary embolus. Lungs are clear. Normal Procalcitonin No Abx for now Chest pain resolved Hypothyroidism Continue Synthroid TSH low, free T 4 normal Menopause Patient is on hormone replacement therapy, taking Japanese medication Continue home meds DVT Px: SCDs Code Status Full Code Disposition: Plan to discharge home today Total Time Total Time Spent Total Time Spent (In Minutes): 25 minutes Total Time Includes: Examination of the Patient, Discharge Planning, Medication Reconciliation and Other Discharge Plan Discharge Items Patient Disposition: Home - Self-Care Reason For Visit: VOMITING, SOB, PAIN IN STOMACH Discharge Diagnosis: Anaphylaxis Angioedema Condition: Fair Discharge Goals: Decrease discomfort and Improve disease control Activity: Resume your previous activity Exercise/Sports: Gradually increase as tolerated Non-emergency contact: Primary Care Provider and Specialist Call non-emergency contact if: you have any medication questions, your symptoms worsen, your pain is not controlled, your pain is worsening, your pain is unusual for you, your pain is concerning for you, you have a fever and your temperature is above 101 Follow-up/Referrals: Gaviota Eubanks MD [Physician] - 08/13/18 11:45 am Donis Alvarado MD [Physician] - 09/01/18 12:40 pm Diet: Heart Healthy Addtl Provider Instructions: Complete the Prednisone course as prescribed Follow up with your Appointments as scheduled Seek immediate medical attention if your symptoms reoccur or worsen Prednisone Taper Course: Start taking Prednisone 60mg X 3 days, then 50mg X 3 days, then 40mg X 3 days, then 30mg x 3 days, then 20mg x 3 days, then 10 mg for 3 days and STOP Prescriptions: New famotidine 20 mg Tablet 20 mg PO BID 30 Days Qty: 60 RF: 0 epinephrine [EpiPen 2-Brandon] 0.3 mg/0.3 mL Auto-Injector 0.3 mg IM UD PRN (Reason: anaphylaxis) Qty: 1 RF: 1 hydroxyzine HCl 10 mg Tablet 10 mg PO Q6 PRN (Reason: Itching) 10 Days Qty: 40 RF: 0 loratadine 10 mg tablet 10 mg PO DAILY 30 Days Qty: 30 RF: 0 prednisone 10 mg tablet 10 mg PO UD 18 Days Qty: 63 RF: 0 Continued levothyroxine 25 mcg Tablet 25 mcg PO QAM RF: 0 Discontinued methylprednisolone [Medrol (Brandon)] 4 mg tablets,dose pack See Rx Instructions .ROUTE .COMPLEX Qty: 21 RF: 0 Stand-Alone Forms: [facility] Discharge Orders: Discharge Order (Routine); Ordered 08/08/18 Ordered By: Lon Jaramillo Admission Data Admit Date/Time: 08/06/18 06:27 Attending Provider: Lon Jaramillo Admit Provider: [facility] [place] Primary Care Provider: PCP,NO Other Providers: [facility] [place] Service: Medical Other Pending Studies at Discharge: Yes Studies:: Histmine, Tryptaser, angiotension converting enzymes levels
== END 2018-08-08 15:28 | disposition home or self-care (01) ==
LOC: 2S 04:55 → ED 04:55 → 2S 08:37 → 4W 08-07 15:29